=== PATIENT | female | born 1985 | race Caucasian/White ===

== ENCOUNTER 2017-09-25 13:29 | Emergency (ER) | END 2017-09-25 14:05 | disposition left against medical advice (07) | LOC: UCEAST 13:29 | DX: F41.9 Anxiety disorder, unspecified (principal); Z76.0 Encounter for issue of repeat prescription; Z53.21 Procedure and treatment not carried out due to patient leaving prior to being seen by health care provider ==

== ENCOUNTER 2017-09-25 16:41 | Emergency (ER) | payer SELFPAY ==
[2017-09-25 16:52] VITALS: BP 124/80
--- NOTE | 2017-09-25 17:03 | UC ---
UC General HPI - HPI Summary HPI Summary: Patient is a urgent care today seeking a bridge prescription for Xanax 0.25 mg that she takes at bedtime for sleep and anxiety. I-stop checked, patient has not run out of medication prior to schedule, patient does not have multiple prescribers. Patient states her provider is out of town until October 06 and she has appointment scheduled with him on October 09. I called the provider office and spoke to the corporate receptionist, and confirmed this information is factual - History of Current Complaint Chief Complaint: UCMedRefill Stated Complaint: requesting refill on anxiety meds Time Seen by Provider: 09/25/17 16:46 Hx Obtained From: Patient Hx Last Menstrual Period: 11/07/14 Onset/Duration: Gradual Onset Pain Intensity: 0 - Allergy/Home Medications Allergies/Adverse Reactions: Allergies Allergy/AdvReac Type Severity Reaction Status Date / Time No Known Allergies Allergy Verified 09/25/17 16:51 Home Medications: Home Medications PARoxetine HCL TAB* [Paxil TAB*] 20 mg PO BID 09/25/17 [History Confirmed ] PMH/Surg Hx/FS Hx/Imm Hx Previously Healthy: Yes Psychological History: Anxiety - Surgical History Surgical History: Yes Surgery Procedure, Year, and Place: [facility] 2006 - Family History Known Family History: Positive: None - Social History Occupation: Employed Full-time Lives: With Family Alcohol Use: None Substance Use Type: None Smoking Status (MU): Never Smoked Tobacco Review of Systems Constitutional: Negative Skin: Negative Eyes: Negative ENT: Negative Respiratory: Negative Cardiovascular: Negative Gastrointestinal: Negative Genitourinary: Negative Motor: Negative Neurovascular: Negative Musculoskeletal: Negative Neurological: Negative Psychological: Anxious Is Patient Immunocompromised?: No All Other Systems Reviewed And Are Negative: Yes Physical Exam Triage Information Reviewed: Yes Appearance: Well-Appearing, No Pain Distress, Well-Nourished Vital Signs: Initial Vital Signs Temp 97.7 F 09/25/17 16:48 Pulse 69 09/25/17 16:48 Resp 20 09/25/17 16:48 BP 124/80 09/25/17 16:48 Pulse Ox 99 09/25/17 16:48 Vital Signs Reviewed: Yes Eye Exam: Normal Eyes: Positive: Conjunctiva Clear ENT Exam: Normal ENT: Positive: Normal ENT inspection, Hearing grossly normal. Negative: Trismus , Muffled voice, Hoarse voice Dental Exam: Normal Neck exam: Normal Neck: Positive: Supple, Nontender, No Lymphadenopathy Respiratory Exam: Normal Respiratory: Positive: No respiratory distress, No accessory muscle use Cardiovascular Exam: Normal Cardiovascular: Positive: RRR, No Murmur, Pulses Normal, Brisk Capillary Refill Musculoskeletal Exam: Normal Musculoskeletal: Positive: Strength Intact, ROM Intact, No Edema Neurological Exam: Normal Neurological: Positive: Alert, Muscle Tone Normal Psychological Exam: Normal Skin Exam: Normal Course/Dx - Course Course Of Treatment: Will refill Xanax 0.25 mg until follow-up appointment with provider. Patient to follow up as planned - Differential Dx - Multi-Symptom Provider Diagnoses: Med refill, chronic anxiety Discharge - Sign-Out/Discharge Documenting (check all that apply): Discharge - Discharge Plan Condition: Stable Disposition: HOME Prescriptions: ALPRAZolam TAB* [Xanax TAB*] 0.25 mg PO BEDTIME PRN #[id number] tab MDD 1 PRN Reason: anxiety Patient Education Materials: Insomnia (ED), Anxiety (ED) Referrals: Cecilia Muir MD [Primary Care Provider] - 10/09/17 - Billing Disposition and Condition Condition: STABLE Disposition: HOME
== END 2017-09-25 17:18 | disposition home or self-care (01) ==
LOC: UCEAST 16:41
DX: F41.9 Anxiety disorder, unspecified (principal); Z76.0 Encounter for issue of repeat prescription
CPT/HCPCS: 99212; G0463

== ENCOUNTER 2018-03-02 13:40 | Emergency (ER) | payer SELFPAY ==
[2018-03-02 13:56] VITALS: BP 131/79
--- NOTE | 2018-03-02 14:39 | UC ---
Syncope/New Syncope HPI - HPI Summary HPI Summary: 33-year-old female presents stating she awoke on her bathroom floor around 12: 15 this afternoon with some confusion and memory loss. Says the last thing she remembers is entering the bathroom around 10:30 in the morning. Unable to recall any of the events that precipitated her loss of consciousness. States she notes a tender area to her right occipital region and she also notes that she bit her tongue at some point. She is complaining of a headache with nausea and some photophobia. Denies neck pain, chest pain, palpitations, shortness of breath, abdominal pain, vomiting, or any other injury. Denies alcohol or illicit drug use. States she has been working multiple double shifts this past week with very little sleep. Denies personal or family history of seizures. - History Of Current Complaint Chief Complaint: UCHeadInjury Stated Complaint: HEAD INJURY,NAUSEA Time Seen by Provider: 03/02/18 14:10 Hx Obtained From: Patient Hx Last Menstrual Period: 02/26/18 Onset/Duration: Sudden Onset, Lasting Hours Activity At Onset: Unknown Context: Unwitnessed, Loss Of Consciousness Associated Head Trauma: Yes Pain Intensity: 7 Associated Signs And Symptoms: Positive: Head Trauma (Recent), Headache. Negative: Chest Pain, Diarrhea, Diaphoresis, Lightheadedness, Numbness, Palpitations, Seizure, Shortness Of Breath, Vomiting, Weakness - Risk Factors Risk Factor(s): Negative - Allergies/Home Medications Allergies/Adverse Reactions: Allergies Allergy/AdvReac Type Severity Reaction Status Date / Time No Known Allergies Allergy Verified 03/02/18 13:57 PMH/Surg Hx/FS Hx/Imm Hx Previously Healthy: Yes Psychological History: Anxiety - Surgical History Surgical History: Yes Surgery Procedure, Year, and Place: [facility] [place] 2006 - Family History Family History: Noncontributory - Social History Occupation: Employed Full-time Lives: With Family Alcohol Use: Occasionally Substance Use Type: None Smoking Status (MU): Never Smoked Tobacco Review of Systems Constitutional: Negative Skin: Other - scalp abrasion Eyes: Photophobia ENT: Negative Respiratory: Negative Cardiovascular: Negative Gastrointestinal: Negative Motor: Negative Neurovascular: Negative Musculoskeletal: Negative Neurological: Headache, Other - syncope with remote memory loss Is Patient Immunocompromised?: No All Other Systems Reviewed And Are Negative: Yes Physical Exam Triage Information Reviewed: Yes Appearance: No Pain Distress, Well-Nourished Vital Signs: Initial Vital Signs Temp 99.0 F 03/02/18 13:47 Pulse 88 03/02/18 13:47 Resp 18 03/02/18 13:47 BP 131/79 03/02/18 13:47 Pulse Ox 98 03/02/18 13:47 Vital Signs Reviewed: Yes ENT: Positive: Pharynx normal, Uvula midline, Other - TMJ nontender, smooth ROM without click or crepitus. No malocclussion.. Negative: Nasal congestion, Nasal drainage, Tonsillar swelling, Tonsillar exudate Neck: Positive: Supple, Nontender - Full painless ROM Respiratory: Positive: Chest non-tender, Lungs clear, Normal breath sounds, No respiratory distress Cardiovascular: Positive: RRR, No Murmur, Pulses Normal, Brisk Capillary Refill Abdomen Description: Positive: Nontender, No Organomegaly, Soft. Negative: Distended, Guarding Musculoskeletal Exam: Normal Neurological: Positive: Alert, Other: - AAOx4/. PERRLA. Cranial nerves II-XII grossly intact. Sensormotor intact. Psychological: Positive: Normal Response To Family Skin: Positive: Other - Superficial abrasion with swelling to right occipital scalp. Syncope Course/Dx - Course Course Of Treatment: 33 year old female with unwitnessed syncopal episode this morning. Her last recollection is walking into bathroom around 10:30 am. She awoke on the floor of the bathroom at 12:15 with some confusion and remote memory loss. She has a small hematoma with abrasion to right occiptal scalp and she bit her tongue. FSBG 110. No history of siezures. Recommend further evaluation in the ED. Transported via [place] [facility]. - Differential Dx/Diagnosis Differential Diagnosis/HQI/PQRI: Cerebral Vascular Accident, Dysrhythmia, Hypoglycemia, Seizure, Vasovagal Episode, Other - Closed head injury Provider Diagnoses: Syncope - Physician Notification/Consults Discussed Patient Care With: Isai Maguire Time Discussed With Above Provider: 14:45 Instructed by Provider To: MD Will See In ED Discharge - Sign-Out/Discharge Documenting (check all that apply): Patient Departure All imaging exams completed and their final reports reviewed: No Studies - Discharge Plan Condition: Guarded Disposition: TRANS HIGHER [facility] Patient Education Materials: Syncope (ED) Referrals: Cecilia Muir MD [Primary Care Provider] - - Billing Disposition and Condition Condition: GUARDED Disposition: Trans Higher Lvl of Care Fac - Attestation Statements Provider Attestation: I was available for consult. This patient was seen by the PURVI. The patient was not presented to, seen by, or examined by me. -Ray
== END 2018-03-02 14:55 | disposition short-term general hospital (02) ==
LOC: UCEAST 13:40
DX: R55 Syncope and collapse (principal); S00.03XA Contusion of scalp, initial encounter; W19.XXXA Unspecified fall, initial encounter; Y92.9 Unspecified place or not applicable
CPT/HCPCS: 99213; G0463

== ENCOUNTER 2018-03-02 15:15 | Observation (INO) | payer OTHER ==
--- NOTE | 2018-03-02 15:36 | ED ---
Syncope/Near Syncope - HPI Summary HPI Summary: This patient is a 33 year old F BIBA to [facility] due to a syncopal episode occurring around 10:30 this morning. Patient states she worked an overnight shift last night and experienced an anxiety attack prior to the syncopal episode. She states she went to the bathroom to splash her face with water and had called her friend around 10:30. She states she lost consciousness and woke up at 12:15 disoriented. She states she hit the R parietal area of her head. She reports a severe headache and photophobia. - History Of Current Complaint Time Seen by Provider: 03/02/18 15:18 Hx Obtained From: Patient Onset/Duration: Lasting Hours, Resolved Context: Unwitnessed, Loss Of Consciousness Associated Head Trauma: Yes Associated Signs And Symptoms: Head Trauma (Recent), Headache - Allergies/Home Medications Allergies/Adverse Reactions: Allergies Allergy/AdvReac Type Severity Reaction Status Date / Time No Known Allergies Allergy Verified 03/02/18 13:57 PMH/Surg Hx/FS Hx/Imm Hx Endocrine/Hematology History: Denies: Hx Diabetes, Hx Thyroid Disease Cardiovascular History: Denies: Hx Hypertension Respiratory History: Denies: Hx Asthma, Hx Chronic Obstructive Pulmonary Disease (COPD) GI History: Reports: Other GI Disorders - see above Denies: Hx Ulcer Psychiatric History: Reports: Hx Anxiety - Surgical History Surgery Procedure, Year, and Place: [email or web address] Infectious Disease History: Denies: Hx Hepatitis, Hx Human Immunodeficiency Virus (HIV), Traveled Outside the [place] in Last 30 Days - Family History Known Family History: Negative: Renal Disease Family History: Noncontributory - Social History Alcohol Use: Occasionally Substance Use Type: Reports: None Smoking Status (MU): Never Smoked Tobacco Review of Systems Positive: Headache, Syncope Positive: Anxious All Other Systems Reviewed And Are Negative: Yes Physical Exam - Summary Physical Exam Summary: Appearance: The patient is well-nourished in no acute distress and in no acute pain. Skin: The skin is warm and dry and skin color reflects adequate perfusion. HEENT: The head is normocephalic and atraumatic. There is no hematoma. There is tenderness o the right parietal area. The pupils are equal and reactive. The conjunctivae are clear and without drainage. Nares are patent and without drainage. Mouth reveals moist mucous membranes and the throat is without erythema and exudate. The external ears are intact. The ear canals are patent and without drainage. The tympanic membranes are intact. Neck: The neck is supple with full range of motion and non-tender. There are no carotid bruits. There is no neck vein distension. Respiratory: Chest is non-tender. Lungs are clear to auscultation and breath sounds are symmetrical and equal. Cardiovascular: Heart is regular rate and rhythm. There is no murmur or rub auscultated. There is no peripheral edema and pulses are symmetrical and equal. Abdomen: The abdomen is soft and non-tender. There are normal bowel sounds heard in all four quadrants and there is no organomegaly palpated. Musculoskeletal: There is no back tenderness noted. Extremities are non-tender with full range of motion. There is good capillary refill. There is no peripheral edema or calf tenderness elicited. Neurological: Patient is alert and oriented to person, place and time. The patient has symmetrical motor strength in all four extremities. Cranial nerves are grossly intact. Deep tendon reflexes are symmetrical and equal in all four extremities. Psychiatric: The patient has an appropriate affect and does not exhibit any anxiety or depression. Triage Information Reviewed: Yes Vital Signs Reviewed: Yes - Jose Coma Scale Best Eye Response: 4 - Spontaneous Best Motor Response: 6 - Obeys Commands Best Verbal Response: 5 - Oriented Coma Scale Total: 15 Diagnostics - Laboratory Result Diagrams: 03/02/18 15:44 03/02/18 15:44 Lab Statement: Any lab studies that have been ordered have been reviewed, and results considered in the medical decision making process. - EKG 1549 Cardiac Rate: NL - 72 BPM EKG Rhythm: Sinus Rhythm - Normal sinus rhythm, normal ST, no ectopy, no STEMI ST Segment: Normal Ectopy: None Course/Dx Course Of Treatment: Ms. Wyman presented to the emergency department after a syncopal episode in her bathroom. She worked all night and then went home and got the kids on the bus to school. She then fell asleep and woke up about 10:30 feeling very anxious. She called a friend and then went into the bathroom and the next thing she remembers is waking up on the bathroom floor about noon. She presented to the emergency department in stable condition. Initial EKG was fine but her initial troponin came back at 0.12 therefore a CTA was obtained to rule out PE. She had no evidence for PE and the hospitalist were contacted for admission and further workup. - Diagnoses Provider Diagnoses: Syncope Discharge - Sign-Out/Discharge Documenting (check all that apply): Patient Departure - Discharge Plan Condition: Stable Disposition: ADMITTED TO [facility] - Billing Disposition and Condition Condition: STABLE Disposition: Admitted to [facility] - Attestation Statements Document Initiated by Scribe: Yes Documenting Scribe: Li Hernandez Provider For Whom Leilani is Documenting (Include Credential): Isai Maguire MD Scribe Attestation: Li Schwarz, scribed for Isai Maguire MD on 03/02/18 at 2149. Scribe Documentation Reviewed: Yes Provider Attestation: The documentation as recorded by the Li villa accurately reflects the service I personally performed and the decisions made by , Isai Maguire MD
[2018-03-02 15:55] LABS: ABS Basophils 0 10^3/ul (0-0.2); ABS Eosinophils 0 10^3/ul (0-0.6); ABS Lymphocytes 0.6 10^3/ul (1.0-4.8); ABS Monocytes 0.2 10^3/ul (0-0.8); ABS Neutrophils 7.9 10^3/ul (1.5-7.7); ABS Nucleated RBC 0 10^3/ul; Eosinophil % 0 % (0-6); Hematocrit 42 % (35-47); Hemoglobin 14.3 g/dl (12.0-16.0); Lymphocyte % 6.4 % (25-47); Mean Corpuscular HGB Conc 34 g/dl (31-36); Mean Corpuscular Hemoglobin 29 pg (27-31); Mean Corpuscular Volume 86 fL (80-97); Mean Platelet Volume 8.1 um3 (7.4-10.4); Nucleated Red Blood Cells % 0.1; Platelet Count 252 10^3/ul (150-450); Red Blood Count 4.86 10^6/ul (4.00-5.40); Red Cell Distribution Width 14 % (10.5-15); White Blood Count 8.7 10^3/ul (3.5-10.8)
[2018-03-02 16:16] LABS: EGFR Non-African American 89.8 (>60)
[2018-03-02] MEDS ORDERED: Iohexol 350* (CONTRAST) 500 ML MDV IV ONE (16:42)
--- NOTE | 2018-03-02 16:53 | RAD ---
HISTORY: trauma, syncope, fall COMPARISONS: None TECHNIQUE: Multiple contiguous axial CT scans were obtained of the head without intravenous contrast. FINDINGS: HEMORRHAGE/INFARCT: There is no hemorrhage or acute infarct. MASSES/SHIFT: There is no mass or shift. EXTRA-AXIAL SPACES: There are no extra-axial fluid collections. SULCI AND VENTRICLES: The sulci and ventricles are normal in size and position for the patient's stated age. CEREBRUM: There are no focal parenchymal abnormalities. BRAINSTEM: There are no focal parenchymal abnormalities. CEREBELLUM: There are no focal parenchymal abnormalities. VESSELS: The vessels are grossly normal. PARANASAL SINUSES: The paranasal sinuses are clear. ORBITS: The orbits are unremarkable. BONES AND SOFT TISSUE: No bone or soft tissue abnormalities are noted. OTHER: None IMPRESSION: NO ACUTE INTRACRANIAL PATHOLOGY.
--- NOTE | 2018-03-02 17:06 | RAD ---
HISTORY: Syncope COMPARISONS: None TECHNIQUE: Multiple contiguous axial CT scans of the chest were obtained after the administration of nonionic intravenous contrast, timed to the pulmonary arterial phase of contrast enhancement.. Coronal and sagittal multiplanar reformations are also submitted for review. FINDINGS: NECK AND THYROID: The lower neck and thyroid are unremarkable. CHEST WALL: There is no lower cervical, axillary, or supraclavicular lymphadenopathy by size criteria. HEART AND PERICARDIUM: The heart is unremarkable. AORTA AND PULMONARY VASCULATURE: There is no pulmonary arterial filling defect to suggest pulmonary embolism. There is no linear filling defect within the aorta to suggest aortic dissection. MEDIASTINUM: There is no mediastinal lymphadenopathy by size criteria. WENDY: There is no hilar lymphadenopathy by size criteria. AIRWAY AND ESOPHAGUS: The airway is unremarkable, without endobronchial filling defect. The esophagus is grossly normal. LUNG PARENCHYMA: The lungs are clear. PLEURA: No pleural abnormalities are noted. UPPER ABDOMEN: The upper abdomen is unremarkable. BONES AND SOFT TISSUES: No bone or soft tissue abnormalities are noted. OTHER: None. IMPRESSION: NO PULMONARY ARTERIAL FILLING DEFECT TO SUGGEST PULMONARY EMBOLISM.
--- NOTE | 2018-03-02 17:09 | ED ---
Progress - Results/Orders Results/Orders: CT Brain Interpreted by radiologist Impression: no acute intracranial pathology Dr. Maguire has reviewed this report. CTA Chest/Thorax Interpreted by radiologist IMPRESSION: NO PULMONARY ARTERIAL FILLING DEFECT TO SUGGEST PULMONARY EMBOLISM. Dr. Maguire has reviewed this report. Course/Dx - Diagnoses Provider Diagnoses: Syncope - Provider Notifications Discussed Care Of Patient With: Kaye Mercado Time Discussed With Above Provider: 17:10 Instructed by Provider To: Admit As Inpatient Discharge - Sign-Out/Discharge Documenting (check all that apply): Patient Departure - admit patient to [facility] - Discharge Plan Condition: Stable Disposition: ADMITTED TO [facility] - Billing Disposition and Condition Condition: STABLE Disposition: Admitted to [facility] - Attestation Statements Document Initiated by Scribe: Yes Documenting Scribe: Susan Ruano Provider For Whom Scribe is Documenting (Include Credential): Isai Maguire MD Scribe Attestation: Susan Schwarz, scribed for Isai Maguire MD on 03/02/18 at 2149. Scribe Documentation Reviewed: Yes Provider Attestation: The documentation as recorded by the scribeSusan accurately reflects the service I personally performed and the decisions made by Isai webb MD
[2018-03-02] MEDS ORDERED: ALPRAZolam TAB* 0.25 MG PO PRN (18:10)
[2018-03-02] MEDS: Acetaminophen TAB* 325 MG PO PRN (18:42)
[2018-03-02 19:28] LABS: Urine Appearance Clear; Urine Blood 2+ (Negative); Urine Color Yellow; Urine Ketones Negative (Negative); Urine Protein Negative (Negative); Urine Red Blood Cell Trace(0-2/hpf) (Absent); Urine Specific Gravity > 1.060 (1.010-1.030); Urine Urobilinogen Negative (Negative); Urine White Blood Cell Trace(0-5/hpf) (Absent)
[2018-03-02] MEDS: NS 0.9% 1000 ML* 1,000 ML IV SCH (20:10)
--- NOTE | 2018-03-02 22:22 | HP ---
HISTORY AND PHYSICAL: DATE OF ADMISSION: 03/02/18 TIME OF EVALUATION: 6:15 p.m. PCP: Dr. Muir. CHIEF COMPLAINT: Syncope. HISTORY OF PRESENT ILLNESS: This is a 33-year-old female with history of anxiety and panic disorder who presents from home after an episode of syncope that occurred this morning sometime between 10:30 a.m. and 12:15 p.m. 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 She ran to the bathroom, put water on her face and was trying to calm herself down and the next thing she noticed is she woke up on the bathroom floor at 12:15 p.m. At that time, she recalls being confused; for example, she called her friend and asked where her mom was; when her friend said her mom was at work, she said "my mom does not work" which is untrue. She had bitten her tongue during this time, but had no urinary or fecal incontinence. She has never passed out before. She does admit to drinking energy drinks recently. She used to take diet pills last year; however, has not taken them since last summer. She also admits to poor p.o. intake and has not eaten for several days and also very little hydration. She denies recent illness. She denies cough, cold, runny nose, sore throat, nausea, vomiting, diarrhea, fevers, chills, dysuria. At this time, she feels sleepy and has some pain on the top of her head where she hit her head on the sink, but otherwise, feels anxious about hoping to stay that night. She reports being very active and never getting chest pain, shortness of breath, dyspnea on exertion, or having experienced syncope with exertion at any other time. She is also a single mom to 3 boys and her mother is in the room and adds that she is not taking care of herself, does not eat well, does not drink fluids, does not sleep and had severe anxiety. PAST MEDICAL HISTORY: Anxiety and panic disorder. PAST SURGICAL HISTORY: She has history of cholecystectomy. HOME MEDICATIONS: 1. Xanax 0.25 p.r.n. anxiety. 2. Celexa, however, she does not take this. 3. Multivitamin. 4. She used to take phentermine last year, but did not take it since then. She believes this has what brought on the panic disorder, which also started around the same time. ALLERGIES: None. FAMILY HISTORY: She has no family history of seizures. No family history of sudden cardiac . No family history of ME at a young age except in her great grandfather who had an ME at age 47. SOCIAL HISTORY: She works at [employer]. She does not smoke cigarettes. She denies illicit drug use and she uses alcohol very occasionally. She is single and has 3 children. PHYSICAL EXAMINATION GENERAL: Alert, anxious, tired appearing female, in no acute distress. VITAL SIGNS: Temperature 98.7, heart rate 96, respiratory rate 21, pulse ox 98 % on room air, blood pressure 125/75. HEENT: Pupils are 3 mm bilaterally and reactive to light. She has no nystagmus. Oral mucosa is moist. She does have 2 bite gotti on both sides of her tongue. NECK: No nuchal rigidity. No cervical adenopathy. No JVP. LUNGS: Clear bilaterally. She has no CVA tenderness. CHEST: She is a regular rate and rhythm. She has a 2/6 systolic murmur that is heard throughout. ABDOMEN: Soft, nontender, nondistended. EXTREMITIES: Strength is 5/5 throughout. Her sensation is intact. She has no ulcers, edema, or rashes. LABORATORY DATA: White blood cells 8.7, hemoglobin 14.3, platelets 252. Sodium 139, potassium 3.5, chloride 106, bicarb 27, BUN 15, creatinine 0.74, glucose 105. Lactic acid 0.7. Troponin 0.12. CK 313. TSH 2.0. Beta-hCG less than 0.60. IMAGING: CTA chest, no pulmonary arterial filling defect to suggest pulmonary embolism. Brain CT, no acute intracranial pathology. EKG, normal sinus rhythm at 72, normal axis, normal intervals, no ST or T wave changes. ASSESSMENT AND PLAN: This is a 33-year-old female with history of anxiety and panic disorder who presents after an episode of syncope that occurred during a panic attack and was found to have an elevated troponin. 1. Syncope versus seizure. It is unclear whether she experienced syncope or seizure this morning and has no history of either. A CT head has been negative and EKG is unremarkable. It would be unusual for a panic disorder to cause syncope. She is prescribed Xanax, but states she does not like to take them and does not take them often, so I do not suspect a seizure from withdrawal. She does have a murmur and has history of taking diet pills, so ruling out a cardiac etiology is certainly warranted especially given her elevated troponin in the emergency department. I would like to admit her and monitor her on telemetry overnight, trend her troponins and check an echocardiogram in the morning. I think it is also worthwhile to check an EEG. UDS is also pending. 2. Elevated troponin. Her CK is only 313, so I doubt rhabdo to be the cause of this and this should be followed up further. I am trending her troponin and monitoring her on tele and I am getting an echocardiogram in the morning as mentioned. 3. Panic disorder. I am continuing her on p.r.n. Xanax. 4. DVT prophylaxis. She is ambulatory. [id number]/[facility] #: [id number] DAVEY
[2018-03-03] MEDS: Acetaminophen TAB* 325 MG PO PRN ×2 (03:35→11:56)
[2018-03-03] MEDS: NS 0.9% 1000 ML* 1,000 ML IV SCH ×2 (05:40→19:44)
[2018-03-03 05:43] LABS: ABS Basophils 0 10^3/ul (0-0.2); ABS Eosinophils 0.1 10^3/ul (0-0.6); ABS Lymphocytes 1.5 10^3/ul (1.0-4.8); ABS Monocytes 0.5 10^3/ul (0-0.8); ABS Nucleated RBC 0 10^3/ul; Eosinophil % 1.3 % (0-6); Hematocrit 38 % (35-47); Hemoglobin 12.7 g/dl (12.0-16.0); Lymphocyte % 29.8 % (25-47); Mean Corpuscular HGB Conc 34 g/dl (31-36); Mean Corpuscular Hemoglobin 29 pg (27-31); Mean Corpuscular Volume 87 fL (80-97); Nucleated Red Blood Cells % 0.2; Platelet Count 220 10^3/ul (150-450); Red Blood Count 4.33 10^6/ul (4.00-5.40); Red Cell Distribution Width 14 % (10.5-15); White Blood Count 5.1 10^3/ul (3.5-10.8)
[2018-03-03 06:04] LABS: EGFR Non-African American 112.3 (>60)
--- NOTE | 2018-03-03 13:19 | ECHO ---
Patient: [facility] Rec#: [id number] : 1985 Date: 03/03/2018 Age: 33y Height: 154.94 cm / 61.0 in Weight: 89.36 kg / 196.9 lbs Sex: F BSA: 1.88 Room#: 435 Admit Date#: 03/02/2018 Type: Inpatient Referring: Lian Jones MD Reading: Helene Gray MD Manager Software Development: Rosario Hall MICHAEL CC: Cecilia Muir MD Transthoracic Echocardiogram Indication: Syncope/Murmur BP: 100/58 HR: 75 Rhythm: NSR Findings History: Anxiety,panic attacks,2/6 systolic murmur. Technical Comments: The study quality is good. Completed at 0912. Left Ventricle: The left ventricular chamber size is normal. Global left ventricular wall motion and contractility are within normal limits. The estimated ejection fraction is 55-60%. Normal left ventricular diastolic filling is observed. Left Atrium: The left atrial chamber size is normal. Right Ventricle: Moderator Band present. The right ventricular cavity size is normal. The right ventricular global systolic function is normal. Right Atrium: The right atrial cavity size is normal. Aortic Valve: The aortic valve is trileaflet. There is no evidence of aortic valve thickening. There is no evidence of aortic regurgitation. There is no evidence of aortic stenosis. Mitral Valve: The mitral valve leaflets are mildly thickened. There is trace to mild mitral regurgitation. There is no evidence of mitral stenosis. Tricuspid Valve: The tricuspid valve leaflets are normal. There is trace tricuspid regurgitation. Unable to estimate the right ventricular systolic pressure. There is no tricuspid stenosis. Pulmonic Valve: The pulmonic valve appears normal. There is trace to mild pulmonic regurgitation. There is no pulmonic stenosis. Pericardium: The pericardium appears normal. Aorta: There is no dilatation of the ascending aorta. There is no dilatation of the aortic arch. There is no dilation of the aortic root. Pulmonary Artery: The main pulmonary artery appears normal. Venous: The inferior vena cava appears normal in size. There is a greater than 50% respiratory change in the inferior vena cava dimension. Conclusions Global left ventricular wall motion and contractility are within normal limits. The estimated ejection fraction is 55-60%. Normal left ventricular diastolic filling is observed. The right ventricular global systolic function is normal. There is trace to mild mitral regurgitation. There is trace tricuspid regurgitation. No prior echo to compare. Measurements Name Value Normal Range RVIDd (AP) 2D 2.9 cm (0.9 - 2.6) RVDdMajor (2D) 3.1 cm (2.2 - 4.4) RAd ISD 4CH 4.1 cm (3.4 - 4.9) RA (A4C)W 3.5 cm (2.9 - 4.6) IVSd (2D) 0.7 cm (0.6 - 1) LVPWd (2D) 0.8 cm (0.6 - 1) LVIDd (2D) 4.6 cm (3.6 - 5.4) LVIDs (2D) 3.3 cm - LV FS (2D) 27 % (25 - 45) Aortic Annulus 1.5 cm (1.4 - 2.6) Ao root diameter (2D) 2.5 cm (2.1 - 3.5) Ascending Ao 2.2 cm (2.1 - 3.4) Aortic arch 2.1 cm (1.8 - 3.4) Descending Ao 1 cm - LA dimension (AP) 2D 3.4 cm (2.3 - 3.8) LAd ISD 4CH 5 cm (2.9 - 5.3) LA ISD 4CH W 4.3 cm (2.5 - 4.5) Name Value Normal Range LA ESV SP 4CH (A/L) 30 ml - LA ESV SP 2CH (A/L) 56 ml - LA ESV BP (A/L) 42 ml - LA ESV BP (A/L) index 22.33 ml/m2 - LA ESV SP 4CH (MOD) 27 ml - LA ESV SP 2CH (MOD) 54 ml - Name Value Normal Range MV E-wave Vmax 1.1 m/sec - MV deceleration time 203 msec - MV A-wave Vmax 0.8 m/sec - MV E:A ratio 1.5 ratio - LV septal e' Vmax 0.11 m/sec - LV lateral e' Vmax 0.16 m/sec - LV E:e' septal ratio 10 ratio - LV E:e' lateral ratio 6.88 ratio - Name Value Normal Range AV Vmax 1.6 m/sec - AV VTI 42.1 cm - AV peak gradient 10.79 mmHg - AV mean gradient 5.41 mmHg - LVOT Vmax 1.4 m/sec - LVOT VTI 30.8 cm - LVOT peak gradient 7.95 mmHg - LVOT mean gradient 3.53 mmHg - Name Value Normal Range MR Vmax 5.5 m/sec - MR VTI 210 cm - Name Value Normal Range IVC diameter 2 cm - Name Value Normal Range PV Vmax 1 m/sec - PV peak gradient 3.94 mmHg -
--- NOTE | 2018-03-03 18:53 | PN ---
Subjective Date of Service: 03/03/18 Interval History: Patient seen and examined. Mother at bedside. Explained ECHO results and troponins in detail, patient seems to have some difficulty grasping the need for additional cardiac testing. Reassurance provided. Patient agreeable to stay for stress tomorrow. Denies SOB, no chest pain, no further complaints. Remains with PVCs on tele. Objective Active Medications: Acetaminophen (Tylenol Tab*) 650 mg PO Q4H PRN PRN Reason: FEVER/PAIN Last Admin: 03/03/18 11:56 Dose: 650 mg Alprazolam (Xanax Tab*) 0.25 mg PO BEDTIME PRN PRN Reason: anxiety Sodium Chloride (Ns 0.9% 1000 Ml*) 1,000 mls @ 125 mls/hr IV PER RATE SHEREEN Last Admin: 03/03/18 05:40 Dose: 125 mls/hr Vital Signs - 8 hr 03/03/18 03/03/18 11:21 15:31 Temperature 98.2 F 98.3 F Pulse Rate 63 69 Respiratory 19 18 Rate Blood Pressure 113/62 111/61 (mmHg) O2 Sat by Pulse 99 99 Oximetry Oxygen Devices in Use Now: None Appearance: Alert, NAD Eyes: No Scleral Icterus, PERRLA Ears/Nose/Mouth/Throat: NL Teeth, Lips, Gums, Mucous Membranes Moist Neck: NL Appearance and Movements; NL JVP, Trachea Midline Respiratory: Symmetrical Chest Expansion and Respiratory Effort, Clear to Auscultation Cardiovascular: NL Sounds; No Murmurs; No JVD, RRR, No Edema, - Abdominal: NL Sounds; No Tenderness; No Distention Extremities: No Edema, No Clubbing, Cyanosis Skin: No Rash or Ulcers Neurological: Alert and Oriented x 3, NL Sensation, NL Gait, NL Muscle Strength and Tone Nutrition: Taking PO's Result Diagrams: 03/03/18 05:32 03/03/18 05:32 Microbiology and Other Data: Microbiology 03/02/18 18:57 Urine Culture - Final Urine Assess/Plan/Problems-Billing Assessment: This is a 33 year old female with only history of anxiety disorder that presented after a syncopal episode. Admitted to r/o cardiac vs neuro source. - Patient Problems (1) Syncope and collapse Code(s): R55 - SYNCOPE AND COLLAPSE SNOMED Code(s): 173252946 Comment: - EEG negative - ECHO as above - Troponins initially elevated and now trending down - Will stress tomorrow, concern for arrythmias in setting of previous history of diet pills - Also contributing, lifestyle issues - lack of sleep, use of energy drinks/ caffeine and overwork combined with hyperventilation 2/2 panic attack? - Re-evaluate in the am after stress, would still recommend outpatient Holter - Urine tox screen negative (2) ROXY (generalized anxiety disorder) Code(s): F41.1 - GENERALIZED ANXIETY DISORDER SNOMED Code(s): 64198783 Comment: - Continue PRN xanax - Recommend outpatient counseling Status and Disposition: Pending stress in AM then dispo to home.
--- NOTE | 2018-03-04 01:19 | EEG ---
ELECTROENCEPHALOGRAPHY: DATE OF SERVICE: 03/03/18 - ROOM #435 DATE OF READ: 03/03/18 ORDERING PROVIDER: Lian Jones DO CLINICAL PROBLEM: Kimberly is a 33-year-old female who had an episode of syncope and tongue laceration after sleep deprivation. This study was obtained to evaluate for epileptiform abnormalities. DURATION OF THE RECORDIN:40 a.m. - 10:04 a.m. CLINICAL STATE: Awake and sleep. REPORT: The waking background showed appropriate organization with clearly defined anteroposterior voltage and frequency gradient. There was a well defined posterior dominant rhythm of 9 Hz, which was symmetrical and showed normal reactivity. Anteriorly, there was an expected pattern of lower voltage irregular mixed fast frequencies. There were diffuse monophasic and occasionally diphasic small sharp spikes were seen predominantly in the occipital region O1, O2, as well as T5. There were no distribution amongst these small discharges and the microvolts as well as the milliseconds was less than 50. These are consistent with benign epileptiform transients of sleep, which is normal variant. Single electrode EKG showed normal sinus rhythm with a rate of 75 beats per minute. Photic stimulation and hyperventilation were not performed. Throughout the recording, there were no epileptiform discharges or electrographic seizures. CLINICAL IMPRESSION: This is a normal waking and sleep EEG with no episode of epileptiform features. A normal interictal EEG does not exclude nor support the diagnosis of her epilepsy. Clinical correlations recommended. [id number]/CPS #: [id number] [facility]
[2018-03-04] MEDS: NS 0.9% 1000 ML* 1,000 ML IV SCH (04:00)
[2018-03-04 15:34] VITALS: BP 118/80
--- NOTE | 2018-03-05 14:37 | DS ---
DISCHARGE SUMMARY: DATE OF ADMISSION: DATE OF DISCHARGE: ADDENDUM: DISCHARGE DISPOSITION: The patient is discharged to home. FOLLOWUP: The patient states that Dr. Muir is her primary care provider; however, she expressed her wish to follow up with [facility] on Thursday and see either Dr. Jones or Dr. Lazo for followup for the new BuSpar prescription. This appointment will be made for her for Thursday. REVIEW OF SYSTEMS ON THE DAY OF DISCHARGE: A 10-point review of systems is negative except as noted above. PHYSICAL EXAMINATION: The patient is alert, in no acute distress. Vital signs are blood pressure 118/80, heart rate 61, respiratory rate 18, O2 saturation 100 % on room air with temperature of 98. HEENT: The patient is atraumatic, normocephalic. PERRLA with anicteric sclerae. Neck is supple, nontender. No JVD noted. No carotid bruit auscultated. Cardiovascular: S1, S2 present. No murmurs, gallops, or rubs noted. Lungs are clear bilaterally to auscultation with no wheezing, rhonchi, or rales. Abdomen is soft, nontender, nondistended. Positive bowel sounds in all 4 quadrants. was deferred. Musculoskeletal: There is no clubbing, no cyanosis, and no edema. She has +2 distal pulses palpable. Steady gait. Gross motor and sensation are intact. LABORATORY DATA: Sodium 137, potassium 3.6, CO2 24, chloride 108, BUN 16, creatinine 0.61, calcium 8.5, total creatine kinase 313 and 439. Troponins 0.12, 0.08, 0.06. TSH 2.01. WBC is 5.1, RBC is 4.33, hemoglobin 12.7, hematocrit 38, platelets 220. Urinalysis is negative for any infective process and urine toxicology was also negative for any drugs. Again, the patient was discharged in stable condition. The patient's questions were answered. I did discuss the utility of having Holter monitor as an outpatient with the patient, instructed her to follow up with Dr. Muir and see if Dr. Muir recommends following up with Cardiology and doing longer term monitoring on a Holter monitor if the patient becomes symptomatic again. We suggest this only because she did have some PVCs, which did not appear link to any structural defects in the heart right now. However, if the patient begins to become symptomatic for them, this is something that should be addressed as an outpatient. GRIFFIN BIRMINGHAM, JAMES [id number]/CPS #: [id number] DAVEY
--- NOTE | 2018-03-05 14:37 | DS ---
CONTINUATION ADDENDUM NOW INCLUDED ON THIS REPORT CC: Dr. Muir.* DISCHARGE SUMMARY: DATE OF ADMISSION: 03/02/18. DATE OF DISCHARGE: 03/04/18. PRIMARY CARE PROVIDER: Dr. Muir. ATTENDING FOR THIS ADMISSION: Dr. Kaye Mercado. MY ATTENDING FOR TODAY: Dr. Kaye Mercado.* (DICTATED BY GRIFFIN BIRMINGHAM NP) HOSPITAL COURSE: This is a very pleasant 33-year-old female patient who reported prior to coming to the hospital that she was very stressed out, having a lot of anxiety, did not sleep and was not eating well, drinking a lot of energy drinks. The patient stated that she was in bed for a little while. She got up and went to the bathroom, went to wash her face and woke up on the floor approximately 2 to 3 hours later. The patient called the EMS Services. She was brought into the emergency department for evaluation. The patient sustained syncope and collapse that was unwitnessed. She did have an EEG which was negative for seizure activities. She had a transthoracic echocardiogram on 03/03/18 which showed global left ventricular wall motion and contractility within normal limits, estimated EF of 55% to 60%, normal left ventricular diastolic filling. Right ventricular global systolic function normal, trace to mild mitral regurg, trace tricuspid regurg with no prior echo to compare. The patient also of significant note, had elevated troponins on her admission. We trended her troponins which initially were 0.12, drifted down to 0.08 and her last one being 0.06. The patient denied any chest pain or shortness of breath during her hospitalization. The patient also denied any prodrome of symptoms prior to her collapse. Because of the trend in the troponin and the patient did have a history of taking diet pills and amphetamines in the past for weight loss, we sent the patient for a stress test to rule out any underlying arrhythmia or other cardiac etiologies. She underwent an exercise stress which showed low risk. The patient was having PVCs on telemetry, however, these also began to resolve over the course of her hospitalization. At this point, the patient is stable for discharge to home. I had a very lengthy discussion with the patient regarding her anxiety and follow up for that. The patient states that she does want to get into counseling. She feels like much of this was brought on by her panic disorder and not taking care of herself physically and not having a proper diet and hydration. I discussed the patient's Xanax. She states that it makes her feel too sleepy and that she is not able to care for her children so she does not wish to take a controlled substance. We discussed BuSpar as an option to which she is willing to try. We will give her 7 days supply of BuSpar and see if this helps and we highly recommended that the patient see outpatient counseling. DISCHARGE DISPOSITION: To home. DISCHARGE DIAGNOSES: 1. Syncope and collapse. 2. Generalized anxiety disorder with panic disorder. 3. PVCs on telemetry. DISCHARGE MEDICATIONS: Include new prescription for BuSpar. BuSpar is 5 mg 2 times a day. She may restart her Xanax at 0.25 mg only if needed in severe case of anxiety or panic disorder as long as the patient is not driving or working or having to care for her children. FOLLOWUPS: The patient was instructed to follow up with Dr. Muir, however, she also expressed that she would like to come to the [facility] for immediate followup on CONTINUATION ADDENDUM: DISCHARGE DISPOSITION: The patient is discharged to home. FOLLOWUP: The patient states that Dr. Muir is her primary care provider; however, she expressed her wish to follow up with [facility] on Thursday and see either Dr. Jones or Dr. Lazo for followup for the new BuSpar prescription. This appointment will be made for her for Thursday. REVIEW OF SYSTEMS ON THE DAY OF DISCHARGE: A 10-point review of systems is negative except as noted above. PHYSICAL EXAMINATION: The patient is alert, in no acute distress. Vital signs are blood pressure 118/80, heart rate 61, respiratory rate 18, O2 saturation 100 % on room air with temperature of 98. HEENT: The patient is atraumatic, normocephalic. PERRLA with anicteric sclerae. Neck is supple, nontender. No JVD noted. No carotid bruit auscultated. Cardiovascular: S1, S2 present. No murmurs, gallops, or rubs noted. Lungs are clear bilaterally to auscultation with no wheezing, rhonchi, or rales. Abdomen is soft, nontender, nondistended. Positive bowel sounds in all 4 quadrants. was deferred. Musculoskeletal: There is no clubbing, no cyanosis, and no edema. She has +2 distal pulses palpable. Steady gait. Gross motor and sensation are intact. LABORATORY DATA: Sodium 137, potassium 3.6, CO2 24, chloride 108, BUN 16, creatinine 0.61, calcium 8.5, total creatine kinase 313 and 439. Troponins 0.12, 0.08, 0.06. TSH 2.01. WBC is 5.1, RBC is 4.33, hemoglobin 12.7, hematocrit 38, platelets 220. Urinalysis is negative for any infective process and urine toxicology was also negative for any drugs. Again, the patient was discharged in stable condition. The patient's questions were answered. I did discuss the utility of having Holter monitor as an outpatient with the patient, instructed her to follow up with Dr. Muir and see if Dr. Muir recommends following up with Cardiology and doing longer term monitoring on a Holter monitor if the patient becomes symptomatic again. We suggest this only because she did have some PVCs, which did not appear link to any structural defects in the heart right now. However, if the patient begins to become symptomatic for them, this is something that should be addressed as an outpatient. GRIFFIN BIRMINGHAM NP [id number]/CPS #: [id number]/CPS #: [id number] DAVEY
== END 2018-03-04 16:24 | disposition home or self-care (01) ==
LOC: ED 15:15 → MEDTELE 18:09
PROVIDERS: ADMIT Internal Medicine; ATTEND Internal Medicine
DX: R55 Syncope and collapse (principal); R74.8 Abnormal levels of other serum enzymes; F41.1 Generalized anxiety disorder; I49.3 Ventricular premature depolarization; Z79.899 Other long term (current) drug therapy; F41.0 Panic disorder [episodic paroxysmal anxiety]
CPT/HCPCS: 36415; 70450; 71275; 80048; 80053; 80307; 81003; 81015; 82550; 83605; 83735; 84443; 84484; 84702; 85025; 87086; 93005; 93306; 95819; 96360; 96361; 99284; A9270-GY; G0378; Q9967

== ENCOUNTER 2019-03-01 13:44 | Emergency (ER) | payer OTHER ==
[2019-03-01 14:23] VITALS: BP 134/66
[2019-03-01] MEDS ORDERED: Penicillin VK TAB* 250 MG PO ONE (14:33)
--- NOTE | 2019-03-01 14:35 | UC ---
Dental HPI - HPI Summary HPI Summary: 34 yo female just finished AMOX for dental infection 1-2 days ago now with increased pain and swelling no fever hx of benign heart murmur no DM no n/v states see was schedule for either a root canal or extraction but it was canceled due to her infection - History of Current Complaint Chief Complaint: UCDentalProblem Stated Complaint: DENTAL CONCERN Time Seen by Provider: 03/01/19 14:26 Hx Obtained From: Patient Hx Last Menstrual Period: 02/03/19; IUD Onset/Duration: Gradual Onset, Lasting Weeks Severity: Moderate Pain Intensity: 2 Pain Scale Used: 0-10 Numeric Aggravating Factor(s): Heat Alleviating Factor(s): OTC Meds Related History: Previous Dental Care on Same Tooth, Swelling Dental: 1 - fractured tooth 2 - diffuse swelling, no pointing abscess - Allergies/Home Medications Allergies/Adverse Reactions: Allergies Allergy/AdvReac Type Severity Reaction Status Date / Time No Known Allergies Allergy Verified 03/01/19 14:18 PMH/Surg Hx/FS Hx/Imm Hx - Surgical History Surgical History: Yes Surgery Procedure, Year, and Place: [email or web address] - Family History Known Family History: Positive: None Negative: Renal Disease Family History: Noncontributory - Social History Alcohol Use: Occasionally Alcohol Amount: 1-2 glasses of wine 1-2 x per month Substance Use Type: None Smoking Status (MU): Never Smoked Tobacco Review of Systems All Other Systems Reviewed And Are Negative: Yes Constitutional: Positive: Negative Skin: Positive: Negative Eyes: Positive: Negative ENT: Positive: Dental Pain Respiratory: Positive: Negative Cardiovascular: Positive: Negative Gastrointestinal: Positive: Negative Genitourinary: Positive: Negative Motor: Positive: Negative Neurovascular: Positive: Negative Musculoskeletal: Positive: Negative Neurological: Positive: Negative Psychological: Positive: Negative Physical Exam Triage Information Reviewed: Yes Appearance: Well-Appearing, No Pain Distress, Well-Nourished Vital Signs: Initial Vital Signs Temp 97.9 F 03/01/19 14:19 Pulse 78 03/01/19 14:19 Resp 16 03/01/19 14:19 BP 134/66 03/01/19 14:19 Pulse Ox 100 03/01/19 14:19 Vital Signs Reviewed: Yes Eyes: Positive: Conjunctiva Clear ENT: Positive: Hearing grossly normal. Negative: Nasal congestion, Nasal drainage, Tonsillar swelling, Tonsillar exudate, Trismus, Muffled voice, Hoarse voice Dental Exam: Other - see exam Neck: Positive: Supple, Nontender, Enlarged Nodes @ - left sub mental node Respiratory: Positive: Lungs clear, Normal breath sounds, No respiratory distress, No accessory muscle use Cardiovascular: Positive: RRR, No Murmur Musculoskeletal: Positive: ROM Intact, No Edema Neurological: Positive: Alert Psychological Exam: Normal Skin Exam: Normal Dental Complaint Course/Dx - Differential Dx/Diagnosis Provider Diagnosis: Dental abscess Discharge ED - Sign-Out/Discharge Documenting (check all that apply): Patient Departure All imaging exams completed and their final reports reviewed: No Studies - Discharge Plan Condition: Stable Disposition: HOME Prescriptions: Ibuprofen TAB* [Motrin TAB*] 600 mg PO QID PRN #40 tab PRN Reason: Pain metroNIDAZOLE [Flagyl 500 MG TAB] 500 mg PO TID #21 tab Penicillin VK 500 MG TAB(NF) [Penicillin VK 500 mg Tab] 500 mg PO QID #28 tab Patient Education Materials: Dental Abscess (ED) Referrals: Cecilia Muir MD [Primary Care Provider] - Additional Instructions: warm compresses recheck in 2 days if not markedly improved to ER for worsening symtpoms call your dentist and set up a follow up appt - Billing Disposition and Condition Condition: STABLE Disposition: Home
== END 2019-03-01 14:44 | disposition home or self-care (01) ==
LOC: UCCORT 13:44
DX: K04.7 Periapical abscess without sinus (principal)
CPT/HCPCS: 99212; A9270-GY; G0463

== ENCOUNTER 2019-03-14 13:18 | Emergency (ER) | payer OTHER ==
[2019-03-14 13:51] VITALS: BP 108/65
--- NOTE | 2019-03-14 14:01 | UC ---
Hand/Wrist HPI - HPI Summary HPI Summary: 34-year-old female comes in with a chief complaint of right wrist pain. Started yesterday while at work when she was a lot of lifting. Pain is in the distal forearm and wrist. Does radiate into the hand and to the elbow. No specific trauma. Pain is worse with range of motion and palpation. Decrease with rest. No weakness or numbness. - History Of Current Complaint Chief Complaint: UCUpperExtremity Stated Complaint: RT ARM PAIN Time Seen by Provider: 03/14/19 13:48 Hx Last Menstrual Period: ~03/06/19 Pain Intensity: 8 - Allergies/Home Medications Allergies/Adverse Reactions: Allergies Allergy/AdvReac Type Severity Reaction Status Date / Time No Known Allergies Allergy Verified 03/14/19 13:46 PMH/Surg Hx/FS Hx/Imm Hx Previously Healthy: Yes - Surgical History Surgical History: Yes Surgery Procedure, Year, and Place: , 2006 - Family History Known Family History: Positive: None Negative: Renal Disease Family History: Noncontributory - Social History Alcohol Use: Occasionally Alcohol Amount: 1-2 glasses of wine 1-2 x per month Substance Use Type: None Smoking Status (MU): Never Smoked Tobacco Review of Systems All Other Systems Reviewed And Are Negative: Yes Constitutional: Positive: Negative Skin: Positive: Negative Eyes: Positive: Negative ENT: Positive: Negative Respiratory: Positive: Negative Cardiovascular: Positive: Negative Gastrointestinal: Positive: Negative Motor: Positive: Negative Neurovascular: Positive: Negative Musculoskeletal: Positive: Other: - SEE HPI Neurological: Positive: Negative Psychological: Positive: Negative Is Patient Immunocompromised?: No Physical Exam Triage Information Reviewed: Yes Appearance: Well-Appearing, No Pain Distress, Well-Nourished Vital Signs: Initial Vital Signs Temp 98 F 03/14/19 13:44 Pulse 63 03/14/19 13:44 Resp 16 03/14/19 13:44 BP 108/65 03/14/19 13:44 Pulse Ox 99 03/14/19 13:44 Vital Signs Reviewed: Yes Eye Exam: Normal Eyes: Positive: Conjunctiva Clear Neck: Positive: Supple Respiratory: Positive: No respiratory distress Musculoskeletal: Positive: Other: - Right wrist is tender to palpation in the distal radius and ulna. Pain is worse with abduction and adduction of the wrist. Fingers have full range of motion and full strength normal capillary refill normal radial pulse. Elbow also has full range of motion full-strength. Neurological: Positive: Alert Psychological: Positive: Age Appropriate Behavior Skin Exam: Normal Hand/Wrist Course/Dx - Course Course Of Treatment: Armature Winder Repair Helper: Valentino Campos F, ([id number]) Chemical Tank Worker: MICAELA ( NUANCE) Report Date: 03/14/2019 13:55:00 Report Status: Final ====== Start of Report Content Patient Name: HARRISON HALL Medical Record# : [id number] Ordering Physician: Tommy Banks MD Acct.#: [id number] : 1985 Age: 34 Sex: F [facility] Exam Date: 03/14/19 1355 ADM Status: REG ER Order Information: WRIST RIGHT 3+ VWS Accession Number: [id number] CPT: 04886 INDICATION: Right wrist injury. TECHNIQUE: 3 views of the right wrist were obtained. FINDINGS: The bones are in normal alignment. No fracture is seen. Joint spaces appear maintained. IMPRESSION: NO EVIDENCE FOR FRACTURE. IF THE PATIENT'S SYMPTOMS PERSIST RECOMMEND FOLLOW-UP IMAGING. <Electronically signed by Valentino Campos MD in OV> 03/14/19 1430 Dictated By: Valentino Campos MD Dictated Date/Time: 03/14/19 142 Transcribed Date/Time: 03/14/191428 Copy to: CC:Cecilia Muir MD; Tommy Banks MD Imaging - [facility] Imaging [facility] [address] [place] [address] ph ) ph ([phone]) ph ([phone]) End of Report Content ==== I discussed the x-rays with the patient. No fracture seen. History examination consistent with at the wrist tendinitis. Patient placed in a thumb spica splint by nursing patient neurovascular intact after placement of the thumb spica splint by nursing. Plan is ice anti-inflammatories immobilization and follow-up with occupational medicine doctor yariel or sports medicine. - Differential Dx/Diagnosis Provider Diagnosis: Right wrist tendinitis Discharge ED - Sign-Out/Discharge Documenting (check all that apply): Patient Departure All imaging exams completed and their final reports reviewed: Yes - Discharge Plan Condition: Stable Disposition: HOME Patient Education Materials: De Quervain Disease (ED), Wrist Sprain (ED) Referrals: Cecilia Muir MD [Primary Care Provider] - [facility] [Provider Group] Micky Ramires MD [Medical Doctor] - Additional Instructions: FOLLOW UP WITH DR RAMIRES, OCCUPATIONAL MEDICINE, OR SPORTS MEDICINE IF NOT COMPLETELY IMPROVED. GET RECHECKED SOONER IF WORSE OR ANY QUESTIONS OR CONCERNS. - Billing Disposition and Condition Condition: STABLE Disposition: Home
== END 2019-03-14 14:42 | disposition home or self-care (01) ==
LOC: UCCORT 13:18
DX: M77.9 Enthesopathy, unspecified (principal)
CPT/HCPCS: 99212; G0463